=== PATIENT | female | born 1995 | race Caucasian/White ===

== ENCOUNTER 2019-12-21 13:46 | Outpatient (REF) | payer OTHER, SELFPAY | END 2019-12-21 13:47 | disposition home or self-care (01) | LOC: HO.MDS 13:46 | PROVIDERS: PCP Internal Medicine; Visit Provider Internal Medicine Gastroenterology | DX: K50.90 Crohn's disease, unspecified, without complications (principal) | CPT/HCPCS: 96413; 96415; J1745 ==

== ENCOUNTER 2020-02-09 11:55 | Outpatient (REF) | payer OTHER, SELFPAY | END 2020-02-09 11:56 | disposition home or self-care (01) | LOC: HO.MDS 11:55 | PROVIDERS: PCP Internal Medicine; Visit Provider Internal Medicine Gastroenterology | DX: K50.80 Crohn's disease of both small and large intestine without complications (principal) | CPT/HCPCS: 96413; 96415; J1745 ==

== ENCOUNTER 2020-03-31 07:59 | Outpatient (REF) | payer OTHER, SELFPAY | END 2020-03-31 08:00 | disposition home or self-care (01) | LOC: HO.MDS 07:59 | PROVIDERS: PCP Internal Medicine; Visit Provider Internal Medicine Gastroenterology | DX: K50.80 Crohn's disease of both small and large intestine without complications (principal) | CPT/HCPCS: 96413; 96415; J1745 ==

== ENCOUNTER 2020-05-19 07:53 | Outpatient (REF) | payer OTHER, SELFPAY | END 2020-05-19 07:54 | disposition home or self-care (01) | LOC: HO.MDS 07:53 | PROVIDERS: PCP Internal Medicine; Visit Provider Internal Medicine Gastroenterology | DX: K50.80 Crohn's disease of both small and large intestine without complications (principal) | CPT/HCPCS: 96413; 96415; J1745 ==

== ENCOUNTER 2020-07-05 07:53 | Outpatient (REF) | payer OTHER, SELFPAY | END 2020-07-05 07:54 | disposition home or self-care (01) | LOC: HO.MDS 07:53 | PROVIDERS: PCP Internal Medicine; Visit Provider Internal Medicine Gastroenterology | DX: K50.80 Crohn's disease of both small and large intestine without complications (principal) | CPT/HCPCS: 96413; 96415; J1745 ==

== ENCOUNTER 2020-08-25 09:28 | Outpatient (REF) | payer OTHER, SELFPAY ==
[2020-08-28 17:17] LABS: TS Negative Control Passed; TS Panel A 0; TS Panel B 0; TS Positive Control Passed; TSpotTB Negative (SeeBelow)
== END 2020-08-25 09:29 | disposition home or self-care (01) ==
LOC: HO.MDS 09:28
PROVIDERS: PCP Internal Medicine; Visit Provider Internal Medicine Gastroenterology
DX: K50.80 Crohn's disease of both small and large intestine without complications (principal)
CPT/HCPCS: 36415; 86481; 96413; 96415; J1745

== ENCOUNTER 2020-10-12 10:41 | Outpatient (REF) | payer OTHER, SELFPAY | END 2020-10-12 10:42 | disposition home or self-care (01) | LOC: HO.MDS 10:41 | PROVIDERS: Visit Provider Internal Medicine Gastroenterology | DX: K50.80 Crohn's disease of both small and large intestine without complications (principal) | CPT/HCPCS: 96413; 96415; Q5103 ==

== ENCOUNTER 2020-12-08 08:36 | Outpatient (REF) | payer OTHER, SELFPAY | END 2020-12-08 08:37 | disposition home or self-care (01) | LOC: HO.MDS 08:36 | PROVIDERS: Visit Provider Internal Medicine Gastroenterology | DX: K50.80 Crohn's disease of both small and large intestine without complications (principal) | CPT/HCPCS: 96413; 96415; J1745 ==

== ENCOUNTER 2021-01-29 08:28 | Outpatient (REF) | payer OTHER, SELFPAY | END 2021-01-29 08:29 | disposition home or self-care (01) | LOC: HO.MDS 08:28 | PROVIDERS: Visit Provider Internal Medicine Gastroenterology | DX: K50.80 Crohn's disease of both small and large intestine without complications (principal) | CPT/HCPCS: 96413; 96415; J1745 ==

== ENCOUNTER → 2021-02-26 13:53 | Outpatient (BNVA) | payer BC, SELFPAY | PROVIDERS: PCP Internal Medicine; Referring Provider Internal Medicine; Visit Provider Internal Medicine Gastroenterology ==

== ENCOUNTER 2021-03-19 08:43 | Outpatient (REF) | payer BC, SELFPAY ==
[2021-03-19 09:10] LABS: Basophils Percent Auto 0.3 % (0-2); Eosinophils Absolute Auto 0.2 X10*3/uL (0.0-0.4); Eosinophils Percent Auto 4.2 % (0-4); Hematocrit 41.2 % (37.0-47.0); Imm Gran Abs Auto 0.01 X10*3/uL (0.00-0.03); Imm Gran Pct Auto 0.2 % (0.0-0.4); Lymphocytes Absolute Auto 2.3 X10*3/uL (1.2-4.9); Lymphocytes Percent Auto 39.3 % (20-40); MANUAL DIFF FLAG NO; Mean Corpuscular Hemoglobin 34.3 pg (27.0-33.0); Monocytes Absolute Auto 0.5 X10*3/uL (0.1-1.2); Monocytes Percent Auto 8.9 % (2-11); Neutrophils Absolute Auto 2.7 x10*3/uL (2.0-8.3); Neutrophils Percent Auto 47.1 % (45-73); Platelet Count 283 X10*3/uL (160-400); Red Blood Count 4.08 X10*6/uL (4.20-5.50); Red Cell Distribution Width 13.1 % (11.0-16.0); White Blood Count 5.7 X10*3/uL (4.8-10.8)
[2021-03-19 09:33] LABS: Alanine Aminotransferase 13 U/L (0-31); Albumin Level 4.3 g/dL (3.5-5.0); Alkaline Phosphatase 60 U/L (39-117); Anion Gap 13 (12-20); Aspartate Amino Transferase 18 U/L (5-31); Bilirubin Total 0.5 mg/dL (0.0-1.0); Blood Urea Nitrogen 7 mg/dL (9-16); Calcium 9.1 mg/dL (8.4-10.2); Carbon Dioxide 24 mmol/L (22-29); Chloride 106 mmol/L (96-108); Estimated Glomerular Filt Rate > 60; Glucose Random 95 mg/dL (60-115); Potassium 4.2 mmol/L (3.3-5.1); Sodium 139 mmol/L (135-145); Total Protein 8.1 g/dL (6.5-8.0)
[2021-03-19 09:53] LABS: Vitamin D 25-OH Total 24.3 ng/mL (>30)
[2021-03-19 10:19] LABS: Vitamin B12 228 pg/mL (200-900)
== END 2021-03-19 08:44 | disposition home or self-care (01) ==
LOC: HO.MDS 08:43
PROVIDERS: Visit Provider Internal Medicine Gastroenterology
DX: K50.90 Crohn's disease, unspecified, without complications (principal)
CPT/HCPCS: 36415; 80053; 82306; 82607; 85025; 86140; 96413; 96415; J1745; Q5103

== ENCOUNTER 2021-05-08 08:35 | Outpatient (REF) | payer BC, SELFPAY | END 2021-05-08 08:36 | disposition home or self-care (01) | LOC: HO.MDS 08:35 | PROVIDERS: Visit Provider Internal Medicine Gastroenterology | DX: K50.90 Crohn's disease, unspecified, without complications (principal) | CPT/HCPCS: 96413; 96415; J1745 ==

== ENCOUNTER 2021-07-02 08:10 | Outpatient (REF) | payer BC, SELFPAY | END 2021-07-02 08:11 | disposition home or self-care (01) | LOC: HO.MDS 08:10 | PROVIDERS: Visit Provider Internal Medicine Gastroenterology | DX: K50.90 Crohn's disease, unspecified, without complications (principal) | CPT/HCPCS: 96413; 96415; J1745 ==

== ENCOUNTER 2021-08-23 10:28 | Outpatient (REF) | payer BC, SELFPAY ==
[2021-08-26 13:43] LABS: TS Negative Control Passed; TS Panel A 0; TS Panel B 0; TS Positive Control Passed; TSpotTB Negative (Negative)
== END 2021-08-23 10:29 | disposition home or self-care (01) ==
LOC: HO.MDS 10:28
PROVIDERS: Visit Provider Internal Medicine Gastroenterology
DX: K50.90 Crohn's disease, unspecified, without complications (principal)
CPT/HCPCS: 36415; 86481; 96413; 96415; J1745

== ENCOUNTER 2021-10-15 09:07 | Outpatient (REF) | payer BC, SELFPAY ==
[2021-10-15 10:05] LABS: MANUAL DIFF FLAG NO
[2021-10-15 10:10] LABS: Basophils Percent Auto 0.3 % (0-2); Eosinophils Absolute Auto 0.3 X10*3/uL (0.0-0.4); Eosinophils Percent Auto 4.6 % (0-4); Hematocrit 38.6 % (37.0-47.0); Hemoglobin 13.2 g/dl (12.0-16.0); Imm Gran Abs Auto 0.01 X10*3/uL (0.00-0.03); Imm Gran Pct Auto 0.2 % (0.0-0.4); Lymphocytes Absolute Auto 2.1 X10*3/uL (1.2-4.9); Lymphocytes Percent Auto 31.5 % (20-40); Mean Corpuscular HGB Conc 34.2 g/dl (31.0-35.0); Mean Corpuscular Hemoglobin 33.8 pg (27.0-33.0); Mean Corpuscular Volume 98.7 fL (80.0-98.0); Mean Platelet Volume 9.1 fL (9.4-12.3); Monocytes Absolute Auto 0.5 X10*3/uL (0.1-1.2); Neutrophils Absolute Auto 3.6 x10*3/uL (2.0-8.3); Neutrophils Percent Auto 55.4 % (45-73); Platelet Count 246 X10*3/uL (160-400); Red Blood Count 3.91 X10*6/uL (4.20-5.50); White Blood Count 6.5 X10*3/uL (4.8-10.8)
[2021-10-15 10:26] LABS: Alanine Aminotransferase 29 U/L (0-31); Alkaline Phosphatase 74 U/L (39-117); Anion Gap 13 (12-20); Aspartate Amino Transferase 28 U/L (5-31); Bilirubin Total 0.5 mg/dL (0.0-1.0); Blood Urea Nitrogen 8 mg/dL (9-16); C Reactive Protein 0.23 mg/dL (< or = 0.50); Carbon Dioxide 25 mmol/L (22-29); Chloride 107 mmol/L (96-108); Estimated Glomerular Filt Rate > 60; Glucose Random 113 mg/dL (60-115); Potassium 4.1 mmol/L (3.3-5.1); Sodium 141 mmol/L (135-145); Total Protein 7.5 g/dL (6.5-8.0)
[2021-10-15 10:47] LABS: Vitamin D 25-OH Total 61.7 ng/mL (>30)
[2021-10-18 23:07] LABS: Methylmalonic Acid 179 nmol/L (87-318)
== END 2021-10-15 09:08 | disposition home or self-care (01) ==
LOC: HO.MDS 09:07
PROVIDERS: Visit Provider Internal Medicine Gastroenterology
DX: K50.90 Crohn's disease, unspecified, without complications (principal)
CPT/HCPCS: 80053; 82306; 83921; 85025; 86140; 96413; 96415; J1745

== ENCOUNTER 2021-12-07 09:02 | Outpatient (REF) | payer BC, SELFPAY | END 2021-12-07 09:03 | disposition home or self-care (01) | LOC: HO.MDS 09:02 | PROVIDERS: Visit Provider Internal Medicine Gastroenterology | DX: K50.90 Crohn's disease, unspecified, without complications (principal) | CPT/HCPCS: 96365; J1745 ==

== ENCOUNTER 2022-01-24 08:03 | Outpatient (REF) | payer BC, SELFPAY | END 2022-01-24 08:04 | disposition home or self-care (01) | LOC: HO.MDS 08:03 | PROVIDERS: Visit Provider Internal Medicine Gastroenterology | DX: K50.90 Crohn's disease, unspecified, without complications (principal) | CPT/HCPCS: 96413; 96415; J1745 ==

== ENCOUNTER 2022-03-18 08:09 | Outpatient (REF) | payer BC, SELFPAY | END 2022-03-18 08:10 | disposition home or self-care (01) | LOC: HO.MDS 08:09 | PROVIDERS: Visit Provider Internal Medicine Gastroenterology | DX: K50.90 Crohn's disease, unspecified, without complications (principal) | CPT/HCPCS: 96413; 96415; J1745 ==

== ENCOUNTER 2022-05-06 08:13 | Outpatient (REF) | payer BC, SELFPAY | END 2022-05-06 08:14 | disposition home or self-care (01) | LOC: HO.MDS 08:13 | PROVIDERS: Visit Provider Internal Medicine Gastroenterology | DX: K50.90 Crohn's disease, unspecified, without complications (principal) | CPT/HCPCS: 96365; 96366; 96413; 96415; J1745 ==

== ENCOUNTER 2022-07-01 11:09 | Outpatient (REF) | payer BC, SELFPAY | END 2022-07-01 11:10 | disposition home or self-care (01) | LOC: HO.MDS 11:09 | PROVIDERS: Visit Provider Internal Medicine Gastroenterology | DX: K50.90 Crohn's disease, unspecified, without complications (principal) | CPT/HCPCS: 96413; 96415; J1745 ==

== ENCOUNTER 2022-08-21 08:19 | Outpatient (REF) | payer BC, SELFPAY | END 2022-08-21 08:20 | disposition home or self-care (01) | LOC: HO.MDS 08:19 | PROVIDERS: Visit Provider Internal Medicine Gastroenterology | DX: K50.90 Crohn's disease, unspecified, without complications (principal) | CPT/HCPCS: 36415; 86481; 96413; 96415; J1745 ==

== ENCOUNTER 2022-10-09 08:33 | Outpatient (REF) | payer BC, SELFPAY | END 2022-10-09 08:34 | disposition home or self-care (01) | LOC: HO.MDS 08:33 | PROVIDERS: Visit Provider Internal Medicine Gastroenterology | DX: K50.90 Crohn's disease, unspecified, without complications (principal) | CPT/HCPCS: 96365; 96366; J1745 ==

== ENCOUNTER 2022-11-27 08:25 | Outpatient (REF) | payer BC, SELFPAY | END 2022-11-27 08:26 | disposition home or self-care (01) | LOC: HO.MDS 08:25 | PROVIDERS: Visit Provider Internal Medicine Gastroenterology | DX: K50.90 Crohn's disease, unspecified, without complications (principal) | CPT/HCPCS: 96365; 96366; J1745 ==

== ENCOUNTER 2023-01-15 08:14 | Outpatient (REF) | payer BC, SELFPAY | END 2023-01-15 08:15 | disposition home or self-care (01) | LOC: HO.MDS 08:14 | PROVIDERS: Visit Provider Internal Medicine Gastroenterology | DX: K50.90 Crohn's disease, unspecified, without complications (principal) | CPT/HCPCS: 96365; 96366; J1745 ==

== ENCOUNTER 2023-03-05 08:27 | Outpatient (REF) | payer BC, SELFPAY | END 2023-03-05 08:28 | disposition home or self-care (01) | LOC: HO.MDS 08:27 | PROVIDERS: Visit Provider Internal Medicine Gastroenterology | DX: K50.90 Crohn's disease, unspecified, without complications (principal) | CPT/HCPCS: 96365; 96366; J1745 ==

== ENCOUNTER 2023-04-23 08:19 | Outpatient (REF) | payer OTHER, SELFPAY ==
[2023-04-23] VITALS (8 sets, daily range): BP systolic 110–130; BP diastolic 75–83; PULSE 64–78; RESP 18; TEMP 36.7; O2SAT 97; BMI 24.0
== END 2023-04-23 08:20 | disposition home or self-care (01) ==
LOC: HO.MDS 08:19
PROVIDERS: Visit Provider Internal Medicine Gastroenterology
DX: K50.90 Crohn's disease, unspecified, without complications (principal)
CPT/HCPCS: 96365; 96366; J1745